=== PATIENT | female | born 1945 | race Caucasian/White ===

== ENCOUNTER 2020-11-12 11:13 | Inpatient (IN) | payer MEDICARE, OTHER ==
[2020-11-12 11:43] LABS: BASOPHIL 0.4 % (0-2); EOSINOPHIL 0 % (0-7); HCT 43.8 % (37.0-47.0); HGB 15.1 g/dl (12.5-16.0); LYMPHOCYTE 4.6 % (15-48); MCH 29.7 pg (25.0-31.0); MCHC 34.5 g/dL (32.0-36.0); MCV 86.1 fL (78.0-100.0); MONOCYTE 4.2 % (0-12); MPV 10.7 fL (6.0-9.5); NRBC 0; PLT 322 K/uL (150-400); RBC 5.09 M/uL (4.20-5.40); RDW 12.9 % (11.5-14.0); WBC 12.7 K/uL (4.0-10.5)
[2020-11-12 11:58] LABS: NEUTROPHIL 90.3 % (41-80)
[2020-11-12 12:02] LABS: INR 1.24 (0.9-1.2); PROTHROMBIN TIME 14.8 SECONDS (11.4-13.6); PTT 35.1 SECONDS (22.2-34.7)
[2020-11-12 12:59] LABS: LACTIC ACID 3.4 mmol/L (0.4-1.9)
[2020-11-12 13:06] LABS: ALBUMIN 2.7 g/dL (3.4-5.0); ALKALINE PHOSHATASE 69 U/L (46-116); ALT 41 U/L (14-59); AST 73 U/L (15-37); BILIRUBIN - TOTAL 0.7 mg/dL (0.2-1.0); BUN 25 mg/dL (7-18); BUN/CREAT RATIO (CALC) 22.5 RATIO; CHLORIDE 93 mmol/L (98-107); CO2 (BICARBONATE) 18 mmol/L (21-32); CREATININE 1.11 mg/dL (0.51-0.95); GLOBULIN (CALCULATION) 5.5 g/dL; GLUCOSE 166 mg/dL (74-106); LDH 611 U/L (81-234); MAGNESIUM 1.9 mg/dL (1.8-2.4); TOTAL PROTEIN 8.2 g/dL (6.4-8.2)
[2020-11-12 13:10] LABS: C-REACTIVE PROTEIN > 18.00 mg/dL (<=0.90)
[2020-11-12] MEDS ORDERED: DAILY MULTIPLE1 EAC1 PO (19:32)
[2020-11-12] MEDS ORDERED: ASCORBIC ACID500 MG PO (19:32)
[2020-11-12] MEDS ORDERED: VITAMIN D310 MC3 PO (19:33)
[2020-11-12] MEDS ORDERED: PHOSLO667 MG PO (19:33)
[2020-11-13 03:14] LABS: BASOPHIL 0.2 % (0-2); EOSINOPHIL 0 % (0-7); HCT 39.1 % (37.0-47.0); HGB 13.7 g/dl (12.5-16.0); LYMPHOCYTE 4.6 % (15-48); MCH 30.2 pg (25.0-31.0); MCV 86.1 fL (78.0-100.0); MONOCYTE 4.3 % (0-12); MPV 10.9 fL (6.0-9.5); NEUTROPHIL 90.5 % (41-80); NRBC 0; PLT 304 K/uL (150-400); RBC 4.54 M/uL (4.20-5.40); RDW 13.1 % (11.5-14.0); WBC 13.3 K/uL (4.0-10.5)
[2020-11-13 04:08] LABS: ALBUMIN 2.1 g/dL (3.4-5.0); ALKALINE PHOSHATASE 57 U/L (46-116); ALT 38 U/L (14-59); AST 66 U/L (15-37); BILIRUBIN - TOTAL 0.4 mg/dL (0.2-1.0); BUN 21 mg/dL (7-18); BUN/CREAT RATIO (CALC) 26.6 RATIO; C-REACTIVE PROTEIN < 0.20 mg/dL (<=0.90); CHLORIDE 101 mmol/L (98-107); CO2 (BICARBONATE) 20 mmol/L (21-32); CREATININE 0.79 mg/dL (0.51-0.95); GLOBULIN (CALCULATION) 4.7 g/dL; GLUCOSE 135 mg/dL (74-106); POTASSIUM 2.9 mmol/L (3.5-5.1); TOTAL PROTEIN 6.8 g/dL (6.4-8.2)
[2020-11-13 14:04] LABS: BILIRUBIN NEGATIVE (NEGATIVE); BLOOD 2+ Ery/uL (NEGATIVE); CLARITY CLEAR (CLEAR); COLOR YELLOW (YELLOW); GLUCOSE (U) NORMAL (NORMAL); LEUKOCYTES NEGATIVE Leu/uL (NEGATIVE); NITRITE NEGATIVE (NEGATIVE); PROTEIN TRACE (LOW) mg/dL (NEGATIVE); SPECIFIC GRAVITY 1.015 (1.001-1.030); UROBILINOGEN 0.2 mg/dL (0.2-1.0)
[2020-11-13 14:21] LABS: AMORPHOUS URATES CRYSTALS TRACE; BACTERIA TRACE
[2020-11-13 21:30] LABS: POTASSIUM 2.8 mmol/L (3.5-5.1)
[2020-11-13 21:32] LABS: MAGNESIUM 2.7 mg/dL (1.8-2.4)
[2020-11-14 03:42] LABS: BASOPHIL 0.2 % (0-2); EOSINOPHIL 0 % (0-7); HCT 40.2 % (37.0-47.0); LYMPHOCYTE 3.5 % (15-48); MCHC 34.8 g/dL (32.0-36.0); MCV 86.1 fL (78.0-100.0); MONOCYTE 4.1 % (0-12); MPV 10.7 fL (6.0-9.5); NEUTROPHIL 91.7 % (41-80); NRBC 0; PLT 431 K/uL (150-400); RBC 4.67 M/uL (4.20-5.40); RDW 13.5 % (11.5-14.0)
[2020-11-14 03:43] LABS: WBC 17.3 K/uL (4.0-10.5)
[2020-11-14 04:11] LABS: ALBUMIN 2.1 g/dL (3.4-5.0); BILIRUBIN - TOTAL 0.3 mg/dL (0.2-1.0); BUN/CREAT RATIO (CALC) 29.6 RATIO; C-REACTIVE PROTEIN 17.9 mg/dL (<=0.90); CREATININE 0.71 mg/dL (0.51-0.95); GLOBULIN (CALCULATION) 4.7 g/dL; TOTAL PROTEIN 6.8 g/dL (6.4-8.2)
[2020-11-14 04:15] LABS: POTASSIUM 4.3 mmol/L (3.5-5.1)
[2020-11-15 03:45] LABS: BASOPHIL 0.2 % (0-2); EOSINOPHIL 0 % (0-7); HCT 41.7 % (37.0-47.0); LYMPHOCYTE 3.4 % (15-48); MCH 29.6 pg (25.0-31.0); MCHC 33.6 g/dL (32.0-36.0); MCV 88.2 fL (78.0-100.0); MONOCYTE 4.2 % (0-12); MPV 10.7 fL (6.0-9.5); NEUTROPHIL 91.3 % (41-80); NRBC 0; PLT 493 K/uL (150-400); RBC 4.73 M/uL (4.20-5.40); RDW 14.2 % (11.5-14.0); WBC 22.7 K/uL (4.0-10.5)
[2020-11-15 04:29] LABS: BILIRUBIN - TOTAL 0.4 mg/dL (0.2-1.0); BUN/CREAT RATIO (CALC) 35.6 RATIO; CREATININE 0.73 mg/dL (0.51-0.95); GLOBULIN (CALCULATION) 4.5 g/dL; TOTAL PROTEIN 6.5 g/dL (6.4-8.2)
[2020-11-16 05:32] LABS: BASOPHIL 0.2 % (0-2); EOSINOPHIL 0 % (0-7); HCT 39.9 % (37.0-47.0); HGB 13.4 g/dl (12.5-16.0); LYMPHOCYTE 3.7 % (15-48); MCH 29.7 pg (25.0-31.0); MCHC 33.6 g/dL (32.0-36.0); MCV 88.5 fL (78.0-100.0); MONOCYTE 3.8 % (0-12); NEUTROPHIL 91.4 % (41-80); NRBC 0; PLT 316 K/uL (150-400); RBC 4.51 M/uL (4.20-5.40); RDW 14.4 % (11.5-14.0)
[2020-11-16 05:35] LABS: WBC 20.2 K/uL (4.0-10.5)
[2020-11-16 06:18] LABS: ALBUMIN 2.1 g/dL (3.4-5.0); BILIRUBIN - TOTAL 0.4 mg/dL (0.2-1.0); BUN/CREAT RATIO (CALC) 38.6 RATIO; C-REACTIVE PROTEIN 12.9 mg/dL (<=0.90); CREATININE 0.7 mg/dL (0.51-0.95); GLOBULIN (CALCULATION) 4.4 g/dL; POTASSIUM 4.8 mmol/L (3.5-5.1); TOTAL PROTEIN 6.5 g/dL (6.4-8.2)
[2020-11-16 15:13] LABS: INR 1.53 (0.9-1.2); PROTHROMBIN TIME 17.5 SECONDS (11.4-13.6)
[2020-11-16 15:14] LABS: PTT 35.6 SECONDS (22.2-34.7)
== END 2020-11-16 16:12 | disposition other institution (70) | DRG 871 ==
LOC: FER 11:13 → FTCU 14:23
PROVIDERS: Emergency Medicine; Internal Medicine; Nurse Practitioner; ADMIT Internal Medicine
PROC: 8E0ZXY6 Isolation (ICD-10-PCS; principal; 2020-11-12)
PROC: XW033E5 Introduction of Remdesivir Anti-infective into Peripheral Vein, Percutaneous Approach, New Technology Group 5 (ICD-10-PCS; 2020-11-12)
PROC: 3E0333Z Introduction of Anti-inflammatory into Peripheral Vein, Percutaneous Approach (ICD-10-PCS; 2020-11-12)
DX: A41.89 Other specified sepsis (principal); U07.1 COVID-19; J12.82 Pneumonia due to coronavirus disease 2019; J96.01 Acute respiratory failure with hypoxia; G92 Toxic encephalopathy; I74.3 Embolism and thrombosis of arteries of the lower extremities; I48.91 Unspecified atrial fibrillation; F17.210 Nicotine dependence, cigarettes, uncomplicated; Z88.8 Allergy status to other drugs, medicaments and biological substances; Z98.49 Cataract extraction status, unspecified eye; I48.0 Paroxysmal atrial fibrillation; R65.20 Severe sepsis without septic shock
CPT/HCPCS: 36415; 36600; 71045; 71250; 80053; 81001; 82728; 82803; 83605; 83615; 83735; 84132; 84145; 84484; 85025; 85610; 85730; 86140; 87040; 93005; 93971; 94010; 94640; C9399; J1100; J1630; J1644; J1650; J2543; J3370; J7030; J7040; J7050; J8540